=== PATIENT | male | born 1995 | race African-American/Black ===

== ENCOUNTER → 2022-03-18 12:28 | Outpatient (BNVA) | payer OTHER, SELFPAY | PROVIDERS: Visit Provider Physician Assistant | DX: S00.83XA Contusion of other part of head, initial encounter (principal); W20.8XXA Other cause of strike by thrown, projected or falling object, initial encounter; G51.0 Bell's palsy | CPT/HCPCS: 99203 ==

== ENCOUNTER 2022-03-18 13:13 | Emergency (ER) | payer OTHER, SELFPAY ==
[2022-03-18 13:35] VITALS: BP 131/68; PULSE 68; RESP 16; TEMP 36.6; O2SAT 98; BMI 26.9
--- NOTE | 2022-03-18 14:12 | ED.NEUROSD ---
HPI - Neuro Symptoms/Deficit General Chief Complaint: Neuro Symptoms/Deficit Stated Complaint: facial injury Time Seen by Provider: 03/18/22 13:17 Source: patient Mode of arrival: EMS Limitations: no limitations History of Present Illness HPI Narrative: 26-year-old male who was referred to the emergency department from [facility] for evaluation of a left facial droop. 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 He states that yesterday he was weed whacking and he was wearing safety glasses. He states that the stone was kicked up in the air by the weed whacker and struck him in his right eye. He states that his eye was closed at the time of the injury. He states that he had irritation and some slight pain around his right eye but had no changes vision. Today, he noticed that his left side of his face was droopy and he was concerned that it was related to the work injury so he went to [facility]. He was evaluated and then sent to the emergency department for evaluation. The patient has been working outdoors but is not aware of any recent tick bites. He denied fever, chills, weakness, fatigue, myalgias arthralgias. He has not noticed any rash on his body. Onset (ago): day(s) (1) Timing confirmed by: other (Patient) Location: left face (Droop) History of same: No Severity: moderate Quality: weak Relieving factors: none Exacerbating factors: none Context: gradual onset On Anticoagulants: No Associated symptoms: denies other symptoms Treatments Prior to Arrival: none Related Data Previous Rx's Medication Instructions Recorded doxycycline hyclate 100 mg tablet 100 mg PO Q12H 10 days #20 tabs 03/18/22 prednisone 20 mg tablet 60 mg PO DAILY 7 days #21 tabs 03/18/22 valacyclovir 1 gram tablet 1,000 mg PO TID 7 days #21 tabs 03/18/22 Allergies Allergy/AdvReac Type Severity Reaction Status Date / Time No Known Allergies Allergy Verified 03/18/22 13:38 Review of Systems Review of Systems: Yes all other systems are reviewed and are negative [facility] Past Medical History [facility] Narrative: Past medical history: None. Past surgical history: Jaw surgery to correct an underbite in 2019. Social history: Patient worsened construction. He denies tobacco, alcohol and drug use Social History Social History Advance Directives: No Advance Directives Information Provided: No Physical Exam Vital Signs: Vital Signs: Last Vital Signs Temp 97.8 F 03/18/22 13:35 Pulse 68 03/18/22 13:35 Resp 16 03/18/22 13:35 BP 131/68 03/18/22 13:35 Pulse Ox 98 03/18/22 13:35 O2 Del Method 03/18/22 13:35 BMI result Body Mass Index 26.9 Const: General: cooperative and no acute distress Orientation/consciousness: oriented to person and oriented to place Limitations: no limitations HEENT: Head: Yes normal to inspection, Yes normocephalic and Yes atraumatic Ears: external ears normal General nose exam: Normal external nose present Face and sinus: Yes other (L facial droop- peripheral ) Mouth: Normal oral and palatal mucosa present Throat: Yes posterior oropharynx normal Eyes: Other: Patient's right eye revealed no obvious foreign bodies or other abnormalities from the injury that occurred yesterday, fluorescein dye was applied to the right eye and examined with a Wood's lamp. There was no abrasion noted. His right eye was examined with a magnifying lens and I do not see any foreign bodies Pupils: Equal, round and reactive pupils present Neck: Neck: Yes normal visual inspection, Yes no lymphadenopathy, Yes trachea midline and Yes supple Chest: Chest palpation & inspection: normal inspection of the chest and normal palpation of entire chest wall Resp: Effort & Inspection: normal respiratory effort and able to speak in complete sentences Auscultation: clear to auscultation bilaterally Cardio: Rate: regular rate Rhythm: regular rhythm Heart sounds: S1 normal heart sound present, S2 normal heart sound present and no murmurs GI: Inspection: Yes normal to inspection Palpation (GI): Soft to palpation, nontender and no guarding Auscultation: normal bowel sounds : General: Yes no CVA tenderness Back/Spine/Pelvis: Back: no CVA tenderness Skin: General skin exam: no rashes or lesions noted Neuro: General: oriented to person and oriented to place Cranial nerves: No CN's II-XII intact bilaterally (Unable to close left thigh fully, diminished wrinkled left forehead) and Yes Equal, round and reactive pupils present Cognition (Neuro): normal cognition Motor exam (neuro): 5/5 motor strength present throughout Extrem: General: Yes normal to inspection Psych: Appearance: grossly normal Speech and movement: Normal speech and movement present Affect: normal affect Attitude: cooperative Thought process: Normal thought process present Thought content: Normal thought content present Course Course Course Narrative: 26-year-old male who presents emergency department for evaluation of a work related injury to his right eye that occurred yesterday and left facial droop that occurred today. The patient's right eye examination was unremarkable, there is no abrasion, significant tenderness of the orbits or ecchymosis. Patient's left face is consistent with a peripheral cranial nerve 7 facial droop. I did discuss the causes Wong's palsy with the patient. Given the fact that he has been working as a gas pump attendant I think the Lyme disease is the most likely cause. Tick-borne illness panel was ordered. Patient was started on doxycycline 100 mg twice a day for 10 days (I told him that needs to be on a 20 day course if his Lyme test is positive), prednisone 60 mg once a day for 7 days and valacyclovir 1000 mg 3 times a day for 7 days. He was given printed and verbal instructions and discharged home. Discharge Plan Discharge Clinical Impression: Contusion of eye, right, Facial droop, Left-sided Wong's palsy Patient Disposition: Home, Self-Care Instructions: Wong Palsy (ED) Additional Instructions: Your right eye exam is normal. Your pain is most likely caused by a bruise (contusion) to the outside of your eye from the rock striking your face. The left side of your face is drooping. This is called Wong's palsy (or palsy of the cranial nerve 7). This can be caused by a viral infection, a bacteria such as Lyme disease or happened spontaneously for no clear cause. Take prednisone 20 mg pills, 3 pills once a day for 7 days. While you are taking prednisone, do not take any NSAIDs (Motrin, Advil, ibuprofen, Aleve, naproxen). Take valacyclovir 1000 mg, 3 times a day for 7 days. Take doxycycline 100 mg twice a day for 10 days. If your Lyme test is positive then you need to take the doxycycline for a total of 20 days. You have 1 refill on the doxycycline prescription. If your insurance is not activated and you cannot afford the valacyclovir that is okay but make sure you take doxycycline and the prednisone. Use natural tear eyedrops, 2 drops in your left eye every hour while your wake to prevent her eye from drying out. Wear sunglasses to prevent sun damage to your left eye. Put on a cup eye patch at night so that you do not scratch her eye when you are sleeping. Stay out of the sun while you are taking doxycycline Follow-up with your doctor in 2 days. Please return to the emergency department if your symptoms get worse or if you develop any symptoms that are concerning to you. Prescriptions: New prednisone 20 mg tablet 60 mg PO DAILY 7 Days Qty: 21 0RF doxycycline hyclate 100 mg tablet 100 mg PO Q12H 10 Days Qty: 20 0RF valacyclovir 1 gram tablet 1,000 mg PO TID 7 Days Qty: 21 0RF Interventions: ED Discharge Assessment Last Done: 03/18/22 14:40 Discharge Date/Time: 03/18/22 14:41
[2022-03-21 16:46] LABS: A. Phagocytphilium DNA,RT-PCR DETECTED (NOT DETECTED); Babesia Microti DNA, RT-PCR NOT DETECTED (NOT DETECTED); Borrelia Miyamotoi,DNA RT-PCR NOT DETECTED (NOT DETECTED); E.Chaffeensis DNA RT-PCR NOT DETECTED (NOT DETECTED); Lyme(Borrelia ssp)DNA RT-PCR NOT DETECTED (NOT DETECTED); Source-Tick borne disease BLOOD
== END 2022-03-18 14:41 | disposition home or self-care (01) ==
PROVIDERS: Emergency Provider Emergency Medicine Emergency Medical Services
DX: S00.11XA Contusion of right eyelid and periocular area, initial encounter (principal); G51.0 Bell's palsy; Y93.H2 Activity, gardening and landscaping; Y93.9 Activity, unspecified; Y92.9 Unspecified place or not applicable; Y99.0 Civilian activity done for income or pay; Z20.822 Contact with and (suspected) exposure to COVID-19; Z79.899 Other long term (current) drug therapy
CPT/HCPCS: 36415; 87798; 87801; 99282; 99283